=== PATIENT | male | born 1955 | race Caucasian/White ===

== ENCOUNTER 2022-06-03 22:44 | Emergency (ER) | payer MEDICAID ==
[~2022-06-03] VITALS: Ht 167.6 cm; Wt 78.0 kg
[2022-06-03 22:52] VITALS: BP 145/85
--- NOTE | 2022-06-03 22:55 | NUR ---
TO LOBBY A/W BED AMBULATORY
--- NOTE | 2022-06-03 23:04 | NUR ---
PT TAKEN TO XRAY
[2022-06-04] MEDS ORDERED: ACET-10509 PO (01:47)
[2022-06-04 01:50] VITALS: BP 123/79
--- NOTE | 2022-06-04 01:50 | NUR ---
Patient discharged with v/s stable. Written and verbal after care instructions given and explained. Patient verbalized understanding. Ambulatory with steady gait. All questions addressed prior to discharge. Advised to follow up with PMD.
== END 2022-06-04 01:50 | disposition home or self-care (01) ==
LOC: MED 22:44
DX: S01.81XA Laceration without foreign body of other part of head, initial encounter (principal); S60.211A Contusion of right wrist, initial encounter; M25.511 Pain in right shoulder; W18.39XA Other fall on same level, initial encounter; Y92.89 Other specified places as the place of occurrence of the external cause; Y93.89 Activity, other specified; Y99.0 Civilian activity done for income or pay
CPT/HCPCS: 73030; 73110; 99284